=== PATIENT | female | born 1950 | race Caucasian/White ===

== ENCOUNTER → 2017-03-22 | Outpatient (CLI) | payer BC ==
[~2017-03-22] MED LIST: NONE PER PT; OMNIPAQUE 350 MG/ML, 100ML BOTTLE ONE
== END | disposition home or self-care (01) ==
LOC: CFH 10:02
PROVIDERS: ATTEND Specialist
DX: C53.9 Malignant neoplasm of cervix uteri, unspecified (principal); N32.89 Other specified disorders of bladder
CPT/HCPCS: 71260; 74177; Q9967

== ENCOUNTER → 2017-12-09 | Outpatient (CLI) | payer MEDICARE, BC | END | disposition home or self-care (01) | LOC: CFH 10:47 → EDSTATUS 12:30 | PROVIDERS: ATTEND Specialist | DX: N32.89 Other specified disorders of bladder (principal) | CPT/HCPCS: 71260; 74177; Q9967 ==

== ENCOUNTER → 2018-07-15 | Outpatient (CLI) | payer MEDICARE, BC | END | disposition home or self-care (01) | LOC: CFH 09:45 | PROVIDERS: ATTEND Specialist | DX: C53.9 Malignant neoplasm of cervix uteri, unspecified (principal); N32.89 Other specified disorders of bladder | CPT/HCPCS: 71260; 74177; Q9967 ==

== ENCOUNTER 2019-01-05 11:16 | Outpatient (CLI) | payer MEDICARE, BC ==
[~2019-01-05 11:16] MED LIST changes: -OMNIPAQUE 350 MG/ML, 100ML BOTTLE ONE
[2019-01-05] MEDS ORDERED: OMNIPAQUE 350 MG/ML, 100ML BOTTLE ONE (15:01)
== END 2019-01-05 23:59 | disposition home or self-care (01) ==
LOC: CFH 11:16
PROVIDERS: ATTEND Specialist
DX: K57.90 Diverticulosis of intestine, part unspecified, without perforation or abscess without bleeding (principal); C53.9 Malignant neoplasm of cervix uteri, unspecified; M41.86 Other forms of scoliosis, lumbar region; M51.36 Other intervertebral disc degeneration, lumbar region; K80.80 Other cholelithiasis without obstruction
CPT/HCPCS: 71260; 74177; Q9967

== ENCOUNTER → 2019-07-13 | Outpatient (CLI) | payer MEDICARE, BC ==
[~2019-07-13] MED LIST changes: +OMNIPAQUE 350 MG/ML, 100ML BOTTLE ONE
== END | disposition home or self-care (01) ==
LOC: CFH 09:27
PROVIDERS: ATTEND Specialist
DX: C78.00 Secondary malignant neoplasm of unspecified lung (principal); C53.9 Malignant neoplasm of cervix uteri, unspecified; K76.0 Fatty (change of) liver, not elsewhere classified; K80.80 Other cholelithiasis without obstruction; K57.30 Diverticulosis of large intestine without perforation or abscess without bleeding
CPT/HCPCS: 71260; 74177; Q9967

== ENCOUNTER → 2020-01-08 | Outpatient (CLI) | payer MEDICARE, BC ==
[~2020-01-08] MED LIST changes: -OMNIPAQUE 350 MG/ML, 100ML BOTTLE ONE
== END | disposition home or self-care (01) ==
LOC: CFH 11:37
PROVIDERS: ATTEND Specialist
DX: C53.9 Malignant neoplasm of cervix uteri, unspecified (principal); K57.30 Diverticulosis of large intestine without perforation or abscess without bleeding; K80.20 Calculus of gallbladder without cholecystitis without obstruction; D17.79 Benign lipomatous neoplasm of other sites
CPT/HCPCS: 74176

== ENCOUNTER → 2020-07-11 | Outpatient (CLI) | payer MEDICARE, BC | END | disposition home or self-care (01) | LOC: CFH 10:00 | PROVIDERS: ATTEND Specialist | DX: C53.9 Malignant neoplasm of cervix uteri, unspecified (principal); K80.20 Calculus of gallbladder without cholecystitis without obstruction; K57.30 Diverticulosis of large intestine without perforation or abscess without bleeding; M51.36 Other intervertebral disc degeneration, lumbar region | CPT/HCPCS: 71250; 74176 ==